=== PATIENT | female | born 1970 | race Caucasian/White ===

== ENCOUNTER 2017-11-12 06:25 | Day surgery (SDC) | payer OTHER ==
[~2017-11-12 06:25] MED LIST: CEFAZOLIN 1 GM/50 ML (PMX) 50 ML IVPB; SOD CHLORIDE 0.9% 1,000 ML IV
[2017-11-12] MEDS ORDERED: CEFAZOLIN 1 GM INJ (07:00)
[2017-11-12] MEDS ORDERED: LIDOCAINE 2% (MDV) 20 ML INJ (07:16)
[2017-11-12] MEDS ORDERED: KETOROLAC 30 MG INJ (07:53)
[2017-11-12] MEDS ORDERED: PROPOFOL 20 ML (07:53)
[2017-11-12] MEDS ORDERED: FENTAnyl 50 MCG/ML VIAL (07:53)
[2017-11-12] MEDS ORDERED: MIDAZOLAM 1 MG/ML 2 ML INJ (07:53)
[2017-11-12] MEDS ORDERED: ONDANSETRON 4 MG INJ (07:53)
[2017-11-12] MEDS: BUPIVACAINE 0.5% (SDV) 30 ML INJ (08:08)
[2017-11-12] MEDS: LIDOCAINE 2% (SDV) 5 ML INJ (08:08)
[2017-11-12] MEDS ORDERED: HYDROCODONE/APAP (5/325) TAB PO (09:00)
== END 2017-11-12 10:15 | disposition home or self-care (01) ==
LOC: SDS 06:25
DX: L72.0 Epidermal cyst (principal)
CPT/HCPCS: 14000; 88307